=== PATIENT | male | born 2000 | race Two or more races ===

== ENCOUNTER 2021-09-05 22:32 | Emergency (ER) | payer OTHER ==
[~2021-09-05] VITALS: Ht 175.3 cm; Wt 77.0 kg
[2021-09-05] MEDS ORDERED: PANT20TA18 PO (23:07)
[2021-09-05] MEDS ORDERED: LIDOcaine Viscous 15ml cup MM ONE (23:10)
[2021-09-05] MEDS ORDERED: pantoprazole 40mg Tablet.DR PO ONE (23:10)
[2021-09-05] MEDS ORDERED: mag hydrox/Alum hydrox/simeth 30ml oral suspension PO ONE (23:10)
[2021-09-06 00:07] VITALS: BP 129/90
== END 2021-09-06 00:08 | disposition home or self-care (01) ==
LOC: ER 22:33
DX: R10.13 Epigastric pain (principal); R10.10 Upper abdominal pain, unspecified; R11.10 Vomiting, unspecified; R51.9 Headache, unspecified; R19.7 Diarrhea, unspecified; K21.9 Gastro-esophageal reflux disease without esophagitis; Z72.89 Other problems related to lifestyle; Z79.899 Other long term (current) drug therapy
CPT/HCPCS: 99283

== ENCOUNTER 2021-10-30 09:02 | Emergency (ER) | payer OTHER ==
[~2021-10-30] VITALS: Ht 175.3 cm; Wt 79.5 kg
[~2021-10-30 09:02] MED LIST: PANT20TA18 PO
[2021-10-30 09:22] VITALS: BP 130/92
== END 2021-10-30 11:53 | disposition home or self-care (01) ==
LOC: ER 09:02
DX: U07.1 COVID-19 (principal); K21.9 Gastro-esophageal reflux disease without esophagitis; Z72.89 Other problems related to lifestyle; Z79.899 Other long term (current) drug therapy
CPT/HCPCS: 87635; 99283; C9803